=== PATIENT | male | born 1960 | race Caucasian/White ===

== ENCOUNTER 2024-11-09 09:29 | Outpatient (RCR) | payer BC, SELFPAY | END 2024-12-20 08:00 | disposition home or self-care (01) | LOC: CR 09:29 | PROVIDERS: Visit Provider Thoracic Surgery (Cardiothoracic Vascular Surgery) | DX: I25.10 Atherosclerotic heart disease of native coronary artery without angina pectoris (principal); Z95.1 Presence of aortocoronary bypass graft | CPT/HCPCS: 93798 ==